=== PATIENT | male | born 1965 | race Caucasian/White ===

== ENCOUNTER 2016-12-07 10:28 | Emergency (ER) | payer OTHER ==
--- NOTE | 2016-12-07 11:46 | ED CLINICAL REPORT ---
Clinical Report - Physicians/Mid Levels [facility] [address] [place] [address] 12/07/2016 10:32 Patient: GOLDY FORRESTER Time Seen: 10:37. Arrived- By ambulance. Historian- patient and EMS personnel. HISTORY OF PRESENT ILLNESS Chief Complaint: ALLERGIC REACTION, ITCHING and "HIVES". FACIAL SWELLING. This started last night and is still present. It was gradual in onset and has been waxing/waning. The patient has had itching and swelling involving the lips, tongue and hands but not had trouble swallowing. No difficulty breathing, dizziness or fainting episodes. A cause has been identified. He has recently taken an antibiotic. (tooth extraction 3 days ago, states he has been on ibuprofen and Penicillin for the past 3 days and noticing some itching last night to extremities. Experienced hives and some tongue swelling this morning, denies shortness of breath). Similar symptoms previously: Recent medical care: Not recently seen/assessed. REVIEW OF SYSTEMS No sore throat, cough, sputum production, fever or chills. No headache, weakness, chest pain, abdominal pain or vomiting. No black stools, urinary frequency, pain with urination, diarrhea or bloody stools. PAST HISTORY Hypertension. Type II diabetes mellitus treated with oral med. PCP: Ravin. Has not had a prior allergic reaction. Dental abscess. Dental pain. Surgeries: Dental surgery. Medications: MetFORMIN HCl Oral. Allergies: Amoxicillin. SOCIAL HISTORY Former smoker, end date 1988. No alcohol use or drug use. ADDITIONAL NOTES The nursing notes have been reviewed. PHYSICAL EXAM Vital Signs: 12/07/2016 10:34 BP: 147/113. HR: 98. RR: 17. O2 saturation: 100%. Temp: 97.7 F. Appearance: Alert. Oriented X3. Patient in mild distress. Head: Mild facial angioedema involving the upper and lower lip and tongue. No angioedema of periorbital area, cheeks or the chin. ENT: Left upper molar(s): (post operative changes; mild tenderness; no fluctuance). Voice normal. Voice not hoarse or muffled. No drooling or pharyngeal erythema. Neck: Neck supple. CVS: Normal heart rate and rhythm. Heart sounds normal. Respiratory: No respiratory distress. Breath sounds normal. No stridor, decreased air movement, prolonged expiration, accessory muscle use or wheezes. No rales or rhonchi. Abdomen: Nontender. No organomegaly. Skin: No cyanosis. Skin warm and dry. No pallor. No diaphoresis. Extremities: Edema of the hands is present (mild). Extremities nontender. No calf tenderness. Skin: Moderate urticaria involving the chest and abdomen, right upper extremity, right lower extremity, left upper extremity and left lower extremity. Neuro: Oriented X 3. No motor deficit. LABS, X-RAYS, AND EKG Pulse Oximetry: (FIO2 - room air). Interpretation: normal. PROGRESS AND PROCEDURES Course of Care: Benadryl 50 mg PO given. Prednisone 60 mg PO given. Famotidine 40 mg PO given. Patient is stable. Physical exam findings are improved. Symptoms much better. Patient/family counseled. Disposition: Discharged. Condition: stable and improved. CLINICAL IMPRESSION Allergic reaction with hives and angioedema secondary to PO penicillins. Periapical dental abscess (resolving). No sinus tract. Dental caries. Clinical picture does not suggest anaphylaxis. INSTRUCTIONS Drink plenty of fluids. No alcohol until released. (Please stop the amoxicillin and motrin.). Warnings: Further evaluation is necessary. It is very important to follow up with a physician. SEDATIVE MEDICATION: You were given sedative medication during your visit. Do not drive or operate dangerous machinery. GENERAL WARNINGS: Return or contact your physician immediately if your condition worsens or changes unexpectedly, if not improving as expected, or if other problems arise. Your Current Medications: CONTINUE TAKING THE FOLLOWING MEDICATIONS: MetFORMIN HCl Oral. Prescription Medications: Hydrocodone/APAP 5mg/325mg: take 1 to 2 orally every 6 hours as needed for pain. Dispense fifteen (15). No refills. EpiPen: inject outside of thigh for allergic reaction. Dispense one (1) unit. No refills. Substitution is permissible. Prednisone 20 mg: take 3 orally every day for 4 days. Dispense sufficient quantity. No refills. Clindamycin 300 mg: take 1 capsule orally every 6 hours for 7 days. No refills. Zantac 150 mg: take 1 orally every 12 hours for 5 days. Dispense fifteen (15). No refills. Substitution is permissible. OTC Medications: Acetaminophen (available over the counter): take according to label instructions. Benadryl (available over the counter): take 1-2 orally every 8 hours for 5 days, as needed for itching or allergies. Dispense thirty (30). No refill. Substitution is permissible. Follow-up: Screening today revealed the patient's blood pressure to be in the hypertensive range. The patient should follow up with a primary care provider for blood pressure management. Follow-up with: [facility], Family Practice, , [address] [place] [address] Follow up in two days. (Electronically signed by Leoncio Bazzi DO 12/07/2016 23:03)
--- NOTE | 2016-12-07 11:46 | ED CLINICAL REPORT ---
Clinical Report - Physicians/Mid Levels [facility] [address] [place] [address] 12/07/2016 10:32 Patient: GOLDY FORRESTER Time Seen: 10:37. Arrived- By ambulance. Historian- patient and EMS personnel. HISTORY OF PRESENT ILLNESS Chief Complaint: ALLERGIC REACTION, ITCHING and "HIVES". FACIAL SWELLING. This started last night and is still present. It was gradual in onset and has been waxing/waning. The patient has had itching and swelling involving the lips, tongue and hands but not had trouble swallowing. No difficulty breathing, dizziness or fainting episodes. A cause has been identified. He has recently taken an antibiotic. (tooth extraction 3 days ago, states he has been on ibuprofen and Penicillin for the past 3 days and noticing some itching last night to extremities. Experienced hives and some tongue swelling this morning, denies shortness of breath). Similar symptoms previously: Recent medical care: Not recently seen/assessed. REVIEW OF SYSTEMS No sore throat, cough, sputum production, fever or chills. No headache, weakness, chest pain, abdominal pain or vomiting. No black stools, urinary frequency, pain with urination, diarrhea or bloody stools. PAST HISTORY Hypertension. Type II diabetes mellitus treated with oral med. PCP: Ravin. Has not had a prior allergic reaction. Dental abscess. Dental pain. Surgeries: Dental surgery. Medications: MetFORMIN HCl Oral. Allergies: Amoxicillin. SOCIAL HISTORY Former smoker, end date 1988. No alcohol use or drug use. ADDITIONAL NOTES The nursing notes have been reviewed. PHYSICAL EXAM Vital Signs: 12/07/2016 10:34 BP: 147/113. HR: 98. RR: 17. O2 saturation: 100%. Temp: 97.7 F. Appearance: Alert. Oriented X3. Patient in mild distress. Head: Mild facial angioedema involving the upper and lower lip and tongue. No angioedema of periorbital area, cheeks or the chin. ENT: Left upper molar(s): (post operative changes; mild tenderness; no fluctuance). Voice normal. Voice not hoarse or muffled. No drooling or pharyngeal erythema. Neck: Neck supple. CVS: Normal heart rate and rhythm. Heart sounds normal. Respiratory: No respiratory distress. Breath sounds normal. No stridor, decreased air movement, prolonged expiration, accessory muscle use or wheezes. No rales or rhonchi. Abdomen: Nontender. No organomegaly. Skin: No cyanosis. Skin warm and dry. No pallor. No diaphoresis. Extremities: Edema of the hands is present (mild). Extremities nontender. No calf tenderness. Skin: Moderate urticaria involving the chest and abdomen, right upper extremity, right lower extremity, left upper extremity and left lower extremity. Neuro: Oriented X 3. No motor deficit. LABS, X-RAYS, AND EKG Pulse Oximetry: (FIO2 - room air). Interpretation: normal. PROGRESS AND PROCEDURES Course of Care: Benadryl 50 mg PO given. Prednisone 60 mg PO given. Famotidine 40 mg PO given. Patient is stable. Physical exam findings are improved. Symptoms much better. Patient/family counseled. Disposition: Discharged. Condition: stable and improved. CLINICAL IMPRESSION Allergic reaction with hives and angioedema secondary to PO penicillins. Periapical dental abscess (resolving). No sinus tract. Dental caries. Clinical picture does not suggest anaphylaxis. INSTRUCTIONS Drink plenty of fluids. No alcohol until released. (Please stop the amoxicillin and motrin.). Warnings: Further evaluation is necessary. It is very important to follow up with a physician. SEDATIVE MEDICATION: You were given sedative medication during your visit. Do not drive or operate dangerous machinery. GENERAL WARNINGS: Return or contact your physician immediately if your condition worsens or changes unexpectedly, if not improving as expected, or if other problems arise. Your Current Medications: CONTINUE TAKING THE FOLLOWING MEDICATIONS: MetFORMIN HCl Oral. Prescription Medications: Hydrocodone/APAP 5mg/325mg: take 1 to 2 orally every 6 hours as needed for pain. Dispense fifteen (15). No refills. EpiPen: inject outside of thigh for allergic reaction. Dispense one (1) unit. No refills. Substitution is permissible. Prednisone 20 mg: take 3 orally every day for 4 days. Dispense sufficient quantity. No refills. Clindamycin 300 mg: take 1 capsule orally every 6 hours for 7 days. No refills. Zantac 150 mg: take 1 orally every 12 hours for 5 days. Dispense fifteen (15). No refills. Substitution is permissible. OTC Medications: Acetaminophen (available over the counter): take according to label instructions. Benadryl (available over the counter): take 1-2 orally every 8 hours for 5 days, as needed for itching or allergies. Dispense thirty (30). No refill. Substitution is permissible. Follow-up: Screening today revealed the patient's blood pressure to be in the hypertensive range. The patient should follow up with a primary care provider for blood pressure management. Follow-up with: [facility], Family Practice, , [address] [place] [address] Follow up in two days. (Electronically signed by Leoncio Bazzi DO 12/07/2016 23:03)
--- NOTE | 2016-12-07 11:47 | ED NURSING NOTES ---
Clinical Report - Nurses [facility] [address] [place] [address] 12/07/2016 10:32 Patient: GOLDY FORRESTER TRIAGE Triage time 1025. Acuity: LEVEL 3. Chief Complaint: ALLERGIC REACTION, ITCHING and HIVES. 10:39 12/07/16. Alert. No acute distress. GREGORIA COMA SCORE: Gregoria Coma Scale: 15- eyes open spontaneously (4); best verbal response- oriented x 4 (5); best motor response- obeys commands (6). --10:40 Armond Waldron R.N. 10:34 12/07/16. BP: 147/113. HR: 98. RR: 17. O2 saturation: 100% on room air. Temp: 97.7 F (oral). Pain level now 0/10. --10:40 Armond Waldron R.N. 10:46 12/07/16. --10:46 Armond Waldron R.N. Weight: 72.5 kg stated. Height/Length: 66 inches Per Patient. BMI: 25.8. --10:34 Armond Waldron R.N. Medications MetFORMIN HCl Oral. --10:37 Armond Waldron R.N. The following entry was struck by Armond Waldron R.N., 10:45 (12/07/16) Reason - other(Pt now states he hasn't taken med in several months). <<STRICKEN ENTRY-- Lisinopril Oral. --10:37 Armond Waldron R.N. --END STRIKE>>. Allergies Amoxicillin. --11:02 Armond Waldron R.N. The following entry was struck by Amrond Waldron R.N., 11:02 (12/07/16) Reason - other. <<STRICKEN ENTRY-- Penicillin. --10:38 Armond Waldron R.N. --END STRIKE>>. Medication/allergy information source: the patient. --10:40 Armond Waldron R.N. History Arrived by EMS. Primary physician (derrick). ( tooth extraction 3 days ago, states he has been on ibuprofen and Penicillin for the past 3 days and noticing some itching last night to extremities. Experienced hives and some tongue swelling this morning, denies shortness of breath.). This started last night. Treatment STEELSCOPE OPERATOR: None. BP: 140/96. HR: 100. RR: 18. O2 saturation: 98 % room air. SOCIAL HX: Former smoker, end date 1988. No alcohol use or drug use. FALL RISK ASSESSMENT: Fall risk assessment completed. No fall risk identified. NUTRITIONAL RISK ASSESSMENT: The nutritional risk assessment revealed no deficiencies. FUNCTIONAL ASSESSMENT: Functional assessment: no impairments noted. LEARNING NEEDS ASSESSMENT: The learning needs assessment revealed no barriers. SKIN INTEGRITY ASSESSMENT: Skin integrity risk assessment completed. No skin integrity risk identified. --10:40 Armond Waldron R.N. ( Pt pulled out amoxicilin pill bottle and realized he had stated incorrectly he was taking penicillin.). --10:46 Armond Waldron R.N. PROBLEMS: Diabetes Mellitus. Hypertension. --10:38 Armond Waldron R.N. ADDITIONAL SURGERIES: no known surgeries. Interventions ID band on patient. To treatment room. --10:40 Armond Waldron R.N. PHYSICAL ASSESSMENT 10:45 12/07/16. To room via stretcher. GENERAL / NEURO / PSYCH: Alert. The patient does not appear to be in acute distress. Oriented X 4. HEENT: Mucous membranes are pink. RESPIRATORY: No respiratory distress. Respirations not labored. Breath sounds within normal limits. ( lungs CTA). CVS: Capillary refill less than 2 seconds. Pulses within normal limits. SKIN: Skin is intact, warm and dry. Urticaria on the chest, abdomen, back, waist area, right arm and left arm- associated with itching. --10:45 Armond Waldron R.N. NURSING PROGRESS NOTES The plan of care for this patient has been created. Monitoring of patient in place. Patient gowned. Call light placed in reach. Side rails up x 2. Bed placed in lowest position. Brakes of bed on. Patient ready for evaluation- chart flagged. --10:45 Armond Waldron R.N. 10:35 12/07/2016 Site #1 started via IV in the left antecubital space with an 22g angiocath; one attempt. Blood drawn: rainbow set. Labeled in the presence of the patient and sent to the lab. Saline lock flushed with 10 mL saline. --10:50 Alysia Ennis R.N. 11:01 12/07/2016 Prednisone PO Tablets 60 mg given. Allergies verified and confirmed 5 rights. --11:01 Armond Waldron R.N. 11:01 12/07/2016 Benadryl (DiphenhydrAMINE HCl) PO Capsules 50 mg given. Allergies verified, confirmed 5 rights and sedative warning given to the patient and patient's contract negotiation manager. --11:01 Armond Waldron R.N. 11:01 12/07/2016 Famotidine PO Tablets 40 mg given. Allergies verified and confirmed 5 rights. --11:01 Armond Waldron R.N. 11:29 12/07/16. HR: 95. O2 saturation: 95% on room air. --11:30 Armond Waldron R.N. DISPOSITION / DISCHARGE Condition at departure: stable. No learning barriers present. The patient was discharged by the physician. He was discharged home and accompanied by contract negotiation manager. He left the Emergency Department ambulatory and via private vehicle. Veterinary Poultry Inspector driving. FALL RISK ASSESSMENT: Fall risk assessment completed. No fall risk identified. --12:00 Tanja Weaver R.N. 11:59 12/07/16. BP: 121/78. HR: 74. RR: 18. O2 saturation: 97%. Pain level now 5/10. --12:00 Tanja Weaver R.N. 12:00 12/07/2016 Site #1 removed upon discharge. Bandage applied. --12:13 Tanja Weaver R.N. Departure time: 12:13 Dec 07 2016. Reviewed medication(s). --12:13 Tanja Weaver R.N. Locked/Released at 12/07/2016 12:14 by Tanja Weaver R.N.
--- NOTE | 2016-12-07 11:47 | ED NURSING NOTES ---
Clinical Report - Nurses [facility] [address] [place] [address] 12/07/2016 10:32 Patient: GOLDY FORRESTER TRIAGE Triage time 1025. Acuity: LEVEL 3. Chief Complaint: ALLERGIC REACTION, ITCHING and HIVES. 10:39 12/07/16. Alert. No acute distress. GREGORIA COMA SCORE: Gregoria Coma Scale: 15- eyes open spontaneously (4); best verbal response- oriented x 4 (5); best motor response- obeys commands (6). --10:40 Armond Waldron R.N. 10:34 12/07/16. BP: 147/113. HR: 98. RR: 17. O2 saturation: 100% on room air. Temp: 97.7 F (oral). Pain level now 0/10. --10:40 Armond Waldron R.N. 10:46 12/07/16. --10:46 Armond Waldron R.N. Weight: 72.5 kg stated. Height/Length: 66 inches Per Patient. BMI: 25.8. --10:34 Armond Waldron R.N. Medications MetFORMIN HCl Oral. --10:37 Armond Waldron R.N. The following entry was struck by Armond Waldron R.N., 10:45 (12/07/16) Reason - other(Pt now states he hasn't taken med in several months). <<STRICKEN ENTRY-- Lisinopril Oral. --10:37 Armond Waldron R.N. --END STRIKE>>. Allergies Amoxicillin. --11:02 Armond Waldron R.N. The following entry was struck by Armond Waldron R.N., 11:02 (12/07/16) Reason - other. <<STRICKEN ENTRY-- Penicillin. --10:38 Armond Waldron R.N. --END STRIKE>>. Medication/allergy information source: the patient. --10:40 Armond Waldron R.N. History Arrived by EMS. Primary physician (derrick). ( tooth extraction 3 days ago, states he has been on ibuprofen and Penicillin for the past 3 days and noticing some itching last night to extremities. Experienced hives and some tongue swelling this morning, denies shortness of breath.). This started last night. Treatment ANALYTICAL LAB ANALYST: None. BP: 140/96. HR: 100. RR: 18. O2 saturation: 98 % room air. SOCIAL HX: Former smoker, end date 1988. No alcohol use or drug use. FALL RISK ASSESSMENT: Fall risk assessment completed. No fall risk identified. NUTRITIONAL RISK ASSESSMENT: The nutritional risk assessment revealed no deficiencies. FUNCTIONAL ASSESSMENT: Functional assessment: no impairments noted. LEARNING NEEDS ASSESSMENT: The learning needs assessment revealed no barriers. SKIN INTEGRITY ASSESSMENT: Skin integrity risk assessment completed. No skin integrity risk identified. --10:40 Armond Waldron R.N. ( Pt pulled out amoxicilin pill bottle and realized he had stated incorrectly he was taking penicillin.). --10:46 Armond Waldron R.N. PROBLEMS: Diabetes Mellitus. Hypertension. --10:38 Armond Waldron R.N. ADDITIONAL SURGERIES: no known surgeries. Interventions ID band on patient. To treatment room. --10:40 Armond Waldron R.N. PHYSICAL ASSESSMENT 10:45 12/07/16. To room via stretcher. GENERAL / NEURO / PSYCH: Alert. The patient does not appear to be in acute distress. Oriented X 4. HEENT: Mucous membranes are pink. RESPIRATORY: No respiratory distress. Respirations not labored. Breath sounds within normal limits. ( lungs CTA). CVS: Capillary refill less than 2 seconds. Pulses within normal limits. SKIN: Skin is intact, warm and dry. Urticaria on the chest, abdomen, back, waist area, right arm and left arm- associated with itching. --10:45 Armond Waldron R.N. NURSING PROGRESS NOTES The plan of care for this patient has been created. Monitoring of patient in place. Patient gowned. Call light placed in reach. Side rails up x 2. Bed placed in lowest position. Brakes of bed on. Patient ready for evaluation- chart flagged. --10:45 Armond Waldron R.N. 10:35 12/07/2016 Site #1 started via IV in the left antecubital space with an 22g angiocath; one attempt. Blood drawn: rainbow set. Labeled in the presence of the patient and sent to the lab. Saline lock flushed with 10 mL saline. --10:50 Alysia Ennis R.N. 11:01 12/07/2016 Prednisone PO Tablets 60 mg given. Allergies verified and confirmed 5 rights. --11:01 Armond Waldron R.N. 11:01 12/07/2016 Benadryl (DiphenhydrAMINE HCl) PO Capsules 50 mg given. Allergies verified, confirmed 5 rights and sedative warning given to the patient and patient's social work instructor. --11:01 Armond Waldron R.N. 11:01 12/07/2016 Famotidine PO Tablets 40 mg given. Allergies verified and confirmed 5 rights. --11:01 Armond Waldron R.N. 11:29 12/07/16. HR: 95. O2 saturation: 95% on room air. --11:30 Armond Waldron R.N. DISPOSITION / DISCHARGE Condition at departure: stable. No learning barriers present. The patient was discharged by the physician. He was discharged home and accompanied by social work instructor. He left the Emergency Department ambulatory and via private vehicle. Labour Market Economist driving. FALL RISK ASSESSMENT: Fall risk assessment completed. No fall risk identified. --12:00 Tanja Weaver R.N. 11:59 12/07/16. BP: 121/78. HR: 74. RR: 18. O2 saturation: 97%. Pain level now 5/10. --12:00 Tanja Weaver R.N. 12:00 12/07/2016 Site #1 removed upon discharge. Bandage applied. --12:13 Tanja Weaver R.N. Departure time: 12:13 Dec 07 2016. Reviewed medication(s). --12:13 Tanja Weaver R.N. Locked/Released at 12/07/2016 12:14 by Tanja Weaver R.N.
--- NOTE | 2016-12-07 11:47 | ED ORDER SUMMARY ---
..... Patient: GOLDY FORRESTER OrderSheet [facility] VisitID: [id number] [address] [place] [address] 51y, M Registration Date/Time: 12/07/2016 ORDER SHEET Weight: 72.5 kg (stated) Allergies: Amoxicillin GENERAL ORDERS: MEDICATION ORDERS: Prednisone PO 60 mg (NOW) (10:52 12/07/2016 [facility]) (11:01 KWfrantzams R.N.) Benadryl PO 50 mg (NOW) (10:52 12/07/2016 [facility]) (11:01 Abbeyams R.N.) Famotidine PO 40 mg (NOW) (10:52 12/07/2016 [facility]) (11:01 KWilliams R.N.) IV FLUIDS: ORDER SHEET NOTES: [Electronically signed by Tanja Weaver R.N. (12:14 12/07/2016)] [Electronically signed by Leoncio Bazzi DO (23:03 12/07/2016)] [Electronically locked/signed by Tanja Weaver R.N. (12:14 12/07/2016)]
--- NOTE | 2016-12-07 11:47 | ED ORDER SUMMARY ---
..... Patient: GOLDY FORRESTER OrderSheet [facility] VisitID: [id number] [address] [place] [address] 51y, M Registration Date/Time: 12/07/2016 ORDER SHEET Weight: 72.5 kg (stated) Allergies: Amoxicillin GENERAL ORDERS: MEDICATION ORDERS: Prednisone PO 60 mg (NOW) (10:52 12/07/2016 [facility]) (11:01 KWfrantzams R.N.) Benadryl PO 50 mg (NOW) (10:52 12/07/2016 [facility]) (11:01 Abbeyams R.N.) Famotidine PO 40 mg (NOW) (10:52 12/07/2016 [facility]) (11:01 KWilliams R.N.) IV FLUIDS: ORDER SHEET NOTES: [Electronically signed by Tanja Weaver R.N. (12:14 12/07/2016)] [Electronically signed by Leoncio Bzazi DO (23:03 12/07/2016)] [Electronically locked/signed by Tanja Weaver R.N. (12:14 12/07/2016)]
--- NOTE | 2016-12-07 23:03 | ED DISCHARGE INSTRUCTIONS ---
Patient: GOLDY FORRESTER General Instructions [facility] VisitID: [id number] [place] [address] 51y, M Registration Date/Time: 12/07/2016 Allergic reaction with hives and angioedema secondary to PO penicillins. Periapical dental abscess (resolving). No sinus tract. Dental caries. INSTRUCTIONS Drink plenty of fluids. No alcohol until released. (Please stop the amoxicillin and motrin.). Warnings: Further evaluation is necessary. It is very important to follow up with a physician. SEDATIVE MEDICATION: You were given sedative medication during your visit. Do not drive or operate dangerous machinery. GENERAL WARNINGS: Return or contact your physician immediately if your condition worsens or changes unexpectedly, if not improving as expected, or if other problems arise. Your Current Medications: CONTINUE TAKING THE FOLLOWING MEDICATIONS: MetFORMIN HCl Oral. Prescription Medications: Hydrocodone/APAP 5mg/325mg: take 1 to 2 orally every 6 hours as needed for pain. Dispense fifteen (15). No refills. EpiPen: inject outside of thigh for allergic reaction. Dispense one (1) unit. No refills. Substitution is permissible. Prednisone 20 mg: take 3 orally every day for 4 days. Dispense sufficient quantity. No refills. Clindamycin 300 mg: take 1 capsule orally every 6 hours for 7 days. No refills. Zantac 150 mg: take 1 orally every 12 hours for 5 days. Dispense fifteen (15). No refills. Substitution is permissible. OTC Medications: Acetaminophen (available over the counter): take according to label instructions. Benadryl (available over the counter): take 1-2 orally every 8 hours for 5 days, as needed for itching or allergies. Dispense thirty (30). No refill. Substitution is permissible. Follow-up: Screening today revealed the patient's blood pressure to be in the hypertensive range. The patient should follow up with a primary care provider for blood pressure management. Follow-up with: [facility], [facility], , [address] [place] [address], [place] [id number] Follow up in two days. ADDITIONAL INFORMATION Drug Reaction: Allergic You are having an allergic reaction to a drug you have taken. This causes an itchy rash and sometimes swelling of various parts of the body. It may also cause trouble swallowing or breathing. The rash may take a few hours or up to two weeks to go away. In the future, remember to tell your doctor about your allergy to this drug so that drugs of this type won't be used again. Home Care: 1) Throw the drug away and do not take it again. The next reaction may be much worse. 2) Avoid tight clothing and anything that heats up your skin (hot showers/baths, direct sunlight) since heat will make itching worse. 3) An ice pack (ice cubes in a plastic bag, wrapped in a towel) will relieve local areas of intense itching and redness. Lanacaine cream or Solarcaine spray (or other product containing "benzocaine") will reduce the itching. 4) Avoid scratching which may worsen the reaction, damage your skin and lead to an infection. 5) Oral Benadryl (diphenhydramine) is an antihistamine available at drug and grocery stores. Unless a prescription antihistamine was given, Benadryl may be used to reduce itching if large areas of the skin are involved. Use lower doses during the daytime and higher doses at bedtime since the drug may make you sleepy. [NOTE: Do not use Benadryl if you have glaucoma or if you are a man with trouble urinating due to an enlarged prostate.] Claritin (loratadine) is an antihistamine that causes less drowsiness and is a good alternative for daytime use. Follow Up with your doctor or this facility in the next two days if your symptoms do not continue to improve. Get Prompt Medical Attention if any of the following occur: -- Wheezing, shortness of breath or difficulty swallowing -- Increased swelling in the face, eyelids, mouth, lips, tongue or throat -- Dizziness, weakness or fainting Dental Abscess A dental abscess is an infection of the tooth socket. It often starts with a crack or cavity in the tooth. A pocket of pus forms between the tooth and the bone. The infection causes pain and swelling of the gum, cheek or jaw. The pain is often made worse by drinking hot or cold fluids, or biting on hard foods. Pain may be felt in the facial sinus or in the ear. A severe infection can interfere with swallowing and breathing. In the emergency department or clinic, you will be started on an antibiotic. However, final treatment requires drainage of the pus. This can be done by removing the tooth or performing a root canal. A root canal is done by an oral surgeon and involves drilling an opening in the tooth to drain the pus. After the infection has healed, a crown is placed over the tooth. Home care The following guidelines will help you care for your abscess at home: Avoid hot and cold foods and liquids since your tooth may be sensitive to temperature changes. If your tooth is chipped or cracked, or if there is a large open cavity, applyoil of cloves(available shzh-ymx-tskzrii in drug stores) directly to the tooth to reduce pain. Some pharmacies carry an rnju-vlv-aholakx "toothache kit". This contains oil of cloves and a paste, which can be applied over the exposed tooth to decrease sensitivity. Apply an ice pack (ice cubes in a plastic bag, wrapped in a towel) over the injured area for 20 minutes every 12 hours the first day for pain relief. Continue this 34 times a day until the pain and swelling goes away. You may use acetaminophen or ibuprofen to control pain, unless another medicine was prescribed. If you have chronic liver or kidney disease or ever had a stomach ulcer or GI bleeding, talk with your doctor before using these medicines. An antibiotic will be prescribed. Take it as directed until completed, even if you are feeling better sooner. Follow-up care Follow up as directed with a dentist or oral surgeon. Even though your pain may improve with the treatment given today, only a dentist or oral surgeon can provide full treatment for this problem. When to seek medical care Get prompt medical attention or contact your doctor if any of the following occur: Your face or eyelid becomes swollen or red Pain worsens or spreads to the neck Fever over 100.4F (38.0C) Unusual drowsiness; headache or stiff neck; weakness, or fainting Pus drains from the gum or tooth Difficulty talking, swallowing or breathing Unable to open your mouth wide Dental Pain A crack or cavity in the tooth, which exposes the sensitive inner area of the tooth can cause tooth pain. An infection in the gum or the root of the tooth can cause pain and swelling. The pain is often made worse by drinking hot or cold fluids, or biting on hard foods. Pain may spread from the tooth to the ear or jaw on the same side. Home Care: Avoid hot and cold foods and liquids since your tooth may be sensitive to temperature changes. If your tooth is chipped or cracked, or if there is a large open cavity, apply OIL OF CLOVES (available giuu-ddw-vyftari in drug stores) directly to the tooth to reduce pain. Some pharmacies carry an ekkl-prl-uecncdv "toothache kit." This contains a paste, which can be applied over the exposed tooth to decrease sensitivity. A cold pack on your jaw over the sore area may help reduce pain. You may use acetaminophen (Tylenol) or ibuprofen (Motrin, Advil) to control pain, unless another medicine was prescribed. [ NOTE: If you have chronic liver or kidney disease or ever had a stomach ulcer or GI bleeding, talk with your doctor before using these medicines.] If you have signs of an infection, an antibiotic will be given. Take it as directed. Follow-Up as directed with a dentist. Your pain may go away with the treatment given. However, only a dentist can fully evaluate and treat the cause and prevent the pain from coming back again. TOOTHACHE IS A SIGN OF DISEASE IN YOUR TOOTH AND SHOULD BE EXAMINED AND TREATED BY A DENTIST. Get Prompt Medical Attention if any of the following occur: Your face becomes swollen or red Pain worsens or spreads to the neck Fever over 100.4 F (38.0 C) Unusual drowsiness; headache or stiff neck; weakness or fainting Pus drains from the tooth Difficulty swallowing or breathing Prednisone Oral tablet What is this medicine? PREDNISONE (PRED ni sone) is a corticosteroid. It is commonly used to treat inflammation of the skin, joints, lungs, and other organs. Common conditions treated include asthma, allergies, and arthritis. It is also used for other conditions, such as blood disorders and diseases of the adrenal glands. How should I use this medicine? Take this medicine by mouth with a glass of water. Follow the directions on the prescription label. Take this medicine with food. If you are taking this medicine once a day, take it in the morning. Do not take more medicine than you are told to take. Do not suddenly stop taking your medicine because you may develop a severe reaction. Your doctor will tell you how much medicine to take. If your doctor wants you to stop the medicine, the dose may be slowly lowered over time to avoid any side effects. Talk to your rate examiner regarding the use of this medicine in children. Special care may be needed. What side effects may I notice from receiving this medicine? Side effects that you should report to your doctor or health life care planner as soon as possible: allergic reactions like skin rash, itching or hives, swelling of the face, lips, or tongue changes in emotions or moods changes in vision depressed mood eye pain fever or chills, cough, sore throat, pain or difficulty passing urine increased thirst swelling of ankles, feet Side effects that usually do not require medical attention (report to your doctor or health life care planner if they continue or are bothersome): confusion, excitement, restlessness headache nausea, vomiting skin problems, acne, thin and shiny skin trouble sleeping weight gain What may interact with this medicine? Do not take this medicine with any of the following medications: metyrapone mifepristone This medicine may also interact with the following medications: aminoglutethimide amphotericin B aspirin and aspirin-like medicines barbiturates certain medicines for diabetes, like glipizide or glyburide cholestyramine cholinesterase inhibitors cyclosporine digoxin diuretics ephedrine female hormones, like estrogens and control pills isoniazid ketoconazole NSAIDS, medicines for pain and inflammation, like ibuprofen or naproxen phenytoin rifampin toxoids vaccines warfarin What if I miss a dose? If you miss a dose, take it as soon as you can. If it is almost time for your next dose, talk to your doctor or health life care planner. You may need to miss a dose or take an extra dose. Do not take double or extra doses without advice. Where should I keep my medicine? Keep out of the reach of children. Store at room temperature between 15 and 30 degrees C (59 and 86 degrees F). Protect from light. Keep container tightly closed. Throw away any unused medicine after the expiration date. What should I tell my health care provider before I take this medicine? They need to know if you have any of these conditions: Stephenson's syndrome diabetes glaucoma heart disease high blood pressure infection (especially a virus infection such as chickenpox, cold sores, or herpes) kidney disease liver disease mental illness myasthenia gravis osteoporosis seizures stomach or intestine problems thyroid disease an unusual or allergic reaction to lactose, prednisone, other medicines, foods, dyes, or preservatives or trying to get breast-feeding What should I watch for while using this medicine? Visit your doctor or health life care planner for regular checks on your progress. If you are taking this medicine over a prolonged period, carry an identification card with your name and address, the type and dose of your medicine, and your doctor's name and address. This medicine may increase your risk of getting an infection. Tell your doctor or health life care planner if you are around anyone with measles or chickenpox, or if you develop sores or blisters that do not heal properly. If you are going to have surgery, tell your doctor or health life care planner that you have taken this medicine within the last twelve months. Ask your doctor or health life care planner about your diet. You may need to lower the amount of salt you eat. This medicine may affect blood sugar levels. If you have diabetes, check with your doctor or health life care planner before you change your diet or the dose of your diabetic medicine. Clindamycin Hydrochloride Oral capsule What is this medicine? CLINDAMYCIN (KLIN da MYE sin) is a lincosamide antibiotic. It is used to treat certain kinds of bacterial infections. It will not work for colds, flu, or other viral infections. How should I use this medicine? Take this medicine by mouth with a full glass of water. Follow the directions on the prescription label. You can take this medicine with food or on an empty stomach. If the medicine upsets your stomach, take it with food. Take your medicine at regular intervals. Do not take your medicine more often than directed. Take all of your medicine as directed even if you think your are better. Do not skip doses or stop your medicine early. Talk to your rate examiner regarding the use of this medicine in children. Special care may be needed. What side effects may I notice from receiving this medicine? Side effects that you should report to your doctor or health life care planner as soon as possible: allergic reactions like skin rash, itching or hives, swelling of the face, lips, or tongue dark urine pain on swallowing redness, blistering, peeling or loosening of the skin, including inside the mouth unusual bleeding or bruising unusually weak or tired yellowing of eyes or skin Side effects that usually do not require medical attention (report to your doctor or health life care planner if they continue or are bothersome): diarrhea itching in the rectal or genital area joint pain nausea, vomiting stomach pain What may interact with this medicine? chloramphenicol erythromycin kaolin products What if I miss a dose? If you miss a dose, take it as soon as you can. If it is almost time for your next dose, take only that dose. Do not take double or extra doses. Where should I keep my medicine? Keep out of the reach of children. Store at room temperature between 20 and 25 degrees C (68 and 77 degrees F). Throw away any unused medicine after the expiration date. What should I tell my health care provider before I take this medicine? They need to know if you have any of these conditions: kidney disease liver disease stomach problems like colitis an unusual or allergic reaction to clindamycin, lincomycin, or other medicines, foods, dyes like tartrazine or preservatives or trying to get breast-feeding What should I watch for while using this medicine? Tell your doctor or healthcare professional if your symptoms do not start to get better or if they get worse. Do not treat diarrhea with over the counter products. Contact your doctor if you have diarrhea that lasts more than 2 days or if it is severe and watery. Ranitidine Hydrochloride Oral tablet What is this medicine? RANITIDINE (ra HARRIS sandoval) is a type of antihistamine that blocks the release of stomach acid. It is used to treat stomach or intestinal ulcers. It can relieve ulcer pain and discomfort, and the heartburn from acid reflux. How should I use this medicine? Take this medicine by mouth with a glass of water. Follow the directions on the prescription label. If you only take this medicine once a day, take it at bedtime. Take your medicine at regular intervals. Do not take your medicine more often than directed. Do not stop taking except on your doctor's advice. Talk to your rate examiner regarding the use of this medicine in children. Special care may be needed. What side effects may I notice from receiving this medicine? Side effects that you should report to your doctor or health life care planner as soon as possible: agitation, nervousness, depression, hallucinations allergic reactions like skin rash, itching or hives, swelling of the face, lips, or tongue breast enlargement in both males and females breathing problems redness, blistering, peeling or loosening of the skin, including inside the mouth unusual bleeding or bruising unusually weak or tired vomiting yellowing of the skin or eyes Side effects that usually do not require medical attention (report to your doctor or health life care planner if they continue or are bothersome): constipation or diarrhea dizziness headache nausea What may interact with this medicine? atazanavir delavirdine gefitinib glipizide ketoconazole midazolam procainamide propantheline triazolam warfarin What if I miss a dose? If you miss a dose, take it as soon as you can. If it is almost time for your next dose, take only that dose. Do not take double or extra doses. Where should I keep my medicine? Keep out of the reach of children. Store at room temperature between 15 and 30 degrees C (59 and 86 degrees F). Protect from light and moisture. Keep container tightly closed. Throw away any unused medicine after the expiration date. What should I tell my health care provider before I take this medicine? They need to know if you have any of these conditions: kidney disease liver disease porphyria an unusual or allergic reaction to ranitidine, other medicines, foods, dyes, or preservatives or trying to get breast-feeding What should I watch for while using this medicine? Tell your doctor or health life care planner if your condition does not start to get better or gets worse. You may need to take this medicine for several days as prescribed before your symptoms get better. Finish the full course of tablets prescribed, even if you feel better. Do not smoke cigarettes or drink alcohol. These increase irritation in your stomach and can lengthen the time it will take for ulcers to heal. Cigarettes and alcohol can also make acid reflux or heartburn worse. If you get black, tarry stools or vomit up what looks like coffee grounds, call your doctor or health life care planner at once. You may have a bleeding ulcer. Acetaminophen Oral tablet What is this medicine? ACETAMINOPHEN (a set a MIHIR rudolph fen) is a pain reliever. It is used to treat mild pain and fever. How should I use this medicine? Take this medicine by mouth with a glass of water. Follow the directions on the package or prescription label. Take your medicine at regular intervals. Do not take your medicine more often than directed. Talk to your rate examiner regarding the use of this medicine in children. While this drug may be prescribed for children as young as 6 years of age for selected conditions, precautions do apply. What side effects may I notice from receiving this medicine? Side effects that you should report to your doctor or health life care planner as soon as possible: allergic reactions like skin rash, itching or hives, swelling of the face, lips, or tongue breathing problems fever or sore throat redness, blistering, peeling or loosening of the skin, including inside the mouth trouble passing urine or change in the amount of urine unusual bleeding or bruising unusually weak or tired yellowing of the eyes or skin Side effects that usually do not require medical attention (report to your doctor or health life care planner if they continue or are bothersome): headache nausea, stomach upset What may interact with this medicine? alcohol imatinib isoniazid other medicines with acetaminophen What if I miss a dose? If you miss a dose, take it as soon as you can. If it is almost time for your next dose, take only that dose. Do not take double or extra doses. Where should I keep my medicine? Keep out of reach of children. Store at room temperature between 20 and 25 degrees C (68 and 77 degrees F). Protect from moisture and heat. Throw away any unused medicine after the expiration date. What should I tell my health care provider before I take this medicine? They need to know if you have any of these conditions: if you frequently drink alcohol containing drinks liver disease an unusual or allergic reaction to acetaminophen, other medicines, foods, dyes or preservatives or trying to get breast-feeding What should I watch for while using this medicine? Tell your doctor or health life care planner if the pain lasts more than 10 days (5 days for children), if it gets worse, or if there is a new or different kind of pain. Also, check with your doctor if a fever lasts for more than 3 days. Do not take other medicines that contain acetaminophen with this medicine. Always read labels carefully. If you have questions, ask your doctor or pharmacist. If you take too much acetaminophen get medical help right away. Too much acetaminophen can be very dangerous and cause liver damage. Even if you do not have symptoms, it is important to get help right away. Diphenhydramine Tannate Chewable tablet What is this medicine? DIPHENHYDRAMINE (dye karen mcdonough) is an antihistamine. It is used to treat the symptoms of an allergic reaction. How should I use this medicine? Take this medicine by mouth. Chew it completely before swallowing. Follow the directions on the prescription label. Take your doses at regular intervals. Do not take your medicine more often than directed. Talk to your rate examiner regarding the use of this medicine in children. While this drug may be prescribed for children as young as 6 years old for selected conditions, precautions do apply. Patients over 65 years old may have a stronger reaction and need a smaller dose. What side effects may I notice from receiving this medicine? Side effects that you should report to your doctor or health life care planner as soon as possible: allergic reactions like skin rash, itching or hives, swelling of the face, lips, or tongue changes in vision confused, agitated, nervous irregular or fast heartbeat tremor trouble passing urine unusual bleeding or bruising unusually weak or tired Side effects that usually do not require medical attention (report to your doctor or health life care planner if they continue or are bothersome): constipation, diarrhea drowsy headache loss of appetite stomach upset, vomiting thick mucous What may interact with this medicine? Do not take this medicine with any of the following medications: MAOIs like Carbex, Eldepryl, Marplan, Nardil, and Parnate This medicine may also interact with the following medications: alcohol barbiturates, like phenobarbital medicines for bladder spasm like oxybutynin, tolterodine medicines for blood pressure medicines for depression, anxiety, or psychotic disturbances medicines for movement abnormalities or Parkinson's disease medicines for sleep other medicines for cold, cough or allergy some medicines for the stomach like chlordiazepoxide, dicyclomine What if I miss a dose? If you miss a dose, take it as soon as you can. If it is almost time for your next dose, take only that dose. Do not take double or extra doses. Where should I keep my medicine? Keep out of the reach of children. Store at room temperature between 15 and 30 degrees C (59 and 86 degrees F). Keep container closed tightly. Throw away any unused medicine after the expiration date. What should I tell my health care provider before I take this medicine? They need to know if you have any of these conditions: glaucoma high blood pressure heart disease liver disease lung or breathing disease, like asthma pain or difficulty passing urine phenylketonuria prostate trouble ulcers or other stomach problems an unusual or allergic reaction to diphenhydramine, sulfites, other medicines foods, dyes, or preservatives or trying to get breast-feeding What should I watch for while using this medicine? Visit your doctor or health life care planner for regular check ups. Tell your doctor or healthcare professional if your symptoms do not start to get better or if they get worse. Your mouth may get dry. Chewing sugarless gum or sucking hard candy, and drinking plenty of water may help. Contact your doctor if the problem does not go away or is severe. This medicine may cause dry eyes and blurred vision. If you wear contact lenses you may feel some discomfort. Lubricating drops may help. See your eye doctor if the problem does not go away or is severe. You may get drowsy or dizzy. Do not drive, use machinery, or do anything that needs mental alertness until you know how this medicine affects you. Do not stand or sit up quickly, especially if you are an older patient. This reduces the risk of dizzy or fainting spells. Alcohol may interfere with the effect of this medicine. Avoid alcoholic drinks. You have been given the following additional information: Allergic Reaction, Drug Tooth Abscess Dental Pain Prednisone Oral tablet Clindamycin Hydrochloride Oral capsule Ranitidine Hydrochloride Oral tablet Acetaminophen Oral tablet Diphenhydramine Tannate Chewable tablet (Electronically signed by Leoncio Bazzi DO 12/07/2016 23:03)
--- NOTE | 2016-12-07 23:03 | ED DISCHARGE INSTRUCTIONS ---
Patient: GOLDY FORRESTER General Instructions [facility] VisitID: [id number] [place] [address] 51y, M Registration Date/Time: 12/07/2016 Allergic reaction with hives and angioedema secondary to PO penicillins. Periapical dental abscess (resolving). No sinus tract. Dental caries. INSTRUCTIONS Drink plenty of fluids. No alcohol until released. (Please stop the amoxicillin and motrin.). Warnings: Further evaluation is necessary. It is very important to follow up with a physician. SEDATIVE MEDICATION: You were given sedative medication during your visit. Do not drive or operate dangerous machinery. GENERAL WARNINGS: Return or contact your physician immediately if your condition worsens or changes unexpectedly, if not improving as expected, or if other problems arise. Your Current Medications: CONTINUE TAKING THE FOLLOWING MEDICATIONS: MetFORMIN HCl Oral. Prescription Medications: Hydrocodone/APAP 5mg/325mg: take 1 to 2 orally every 6 hours as needed for pain. Dispense fifteen (15). No refills. EpiPen: inject outside of thigh for allergic reaction. Dispense one (1) unit. No refills. Substitution is permissible. Prednisone 20 mg: take 3 orally every day for 4 days. Dispense sufficient quantity. No refills. Clindamycin 300 mg: take 1 capsule orally every 6 hours for 7 days. No refills. Zantac 150 mg: take 1 orally every 12 hours for 5 days. Dispense fifteen (15). No refills. Substitution is permissible. OTC Medications: Acetaminophen (available over the counter): take according to label instructions. Benadryl (available over the counter): take 1-2 orally every 8 hours for 5 days, as needed for itching or allergies. Dispense thirty (30). No refill. Substitution is permissible. Follow-up: Screening today revealed the patient's blood pressure to be in the hypertensive range. The patient should follow up with a primary care provider for blood pressure management. Follow-up with: [facility], [facility], , [address] [place] [address], [place] [id number] Follow up in two days. ADDITIONAL INFORMATION Drug Reaction: Allergic You are having an allergic reaction to a drug you have taken. This causes an itchy rash and sometimes swelling of various parts of the body. It may also cause trouble swallowing or breathing. The rash may take a few hours or up to two weeks to go away. In the future, remember to tell your doctor about your allergy to this drug so that drugs of this type won't be used again. Home Care: 1) Throw the drug away and do not take it again. The next reaction may be much worse. 2) Avoid tight clothing and anything that heats up your skin (hot showers/baths, direct sunlight) since heat will make itching worse. 3) An ice pack (ice cubes in a plastic bag, wrapped in a towel) will relieve local areas of intense itching and redness. Lanacaine cream or Solarcaine spray (or other product containing "benzocaine") will reduce the itching. 4) Avoid scratching which may worsen the reaction, damage your skin and lead to an infection. 5) Oral Benadryl (diphenhydramine) is an antihistamine available at drug and grocery stores. Unless a prescription antihistamine was given, Benadryl may be used to reduce itching if large areas of the skin are involved. Use lower doses during the daytime and higher doses at bedtime since the drug may make you sleepy. [NOTE: Do not use Benadryl if you have glaucoma or if you are a man with trouble urinating due to an enlarged prostate.] Claritin (loratadine) is an antihistamine that causes less drowsiness and is a good alternative for daytime use. Follow Up with your doctor or this facility in the next two days if your symptoms do not continue to improve. Get Prompt Medical Attention if any of the following occur: -- Wheezing, shortness of breath or difficulty swallowing -- Increased swelling in the face, eyelids, mouth, lips, tongue or throat -- Dizziness, weakness or fainting Dental Abscess A dental abscess is an infection of the tooth socket. It often starts with a crack or cavity in the tooth. A pocket of pus forms between the tooth and the bone. The infection causes pain and swelling of the gum, cheek or jaw. The pain is often made worse by drinking hot or cold fluids, or biting on hard foods. Pain may be felt in the facial sinus or in the ear. A severe infection can interfere with swallowing and breathing. In the emergency department or clinic, you will be started on an antibiotic. However, final treatment requires drainage of the pus. This can be done by removing the tooth or performing a root canal. A root canal is done by an oral surgeon and involves drilling an opening in the tooth to drain the pus. After the infection has healed, a crown is placed over the tooth. Home care The following guidelines will help you care for your abscess at home: Avoid hot and cold foods and liquids since your tooth may be sensitive to temperature changes. If your tooth is chipped or cracked, or if there is a large open cavity, applyoil of cloves(available fxhk-vev-qyobuin in drug stores) directly to the tooth to reduce pain. Some pharmacies carry an vugx-jni-mvcfdin "toothache kit". This contains oil of cloves and a paste, which can be applied over the exposed tooth to decrease sensitivity. Apply an ice pack (ice cubes in a plastic bag, wrapped in a towel) over the injured area for 20 minutes every 12 hours the first day for pain relief. Continue this 34 times a day until the pain and swelling goes away. You may use acetaminophen or ibuprofen to control pain, unless another medicine was prescribed. If you have chronic liver or kidney disease or ever had a stomach ulcer or GI bleeding, talk with your doctor before using these medicines. An antibiotic will be prescribed. Take it as directed until completed, even if you are feeling better sooner. Follow-up care Follow up as directed with a dentist or oral surgeon. Even though your pain may improve with the treatment given today, only a dentist or oral surgeon can provide full treatment for this problem. When to seek medical care Get prompt medical attention or contact your doctor if any of the following occur: Your face or eyelid becomes swollen or red Pain worsens or spreads to the neck Fever over 100.4F (38.0C) Unusual drowsiness; headache or stiff neck; weakness, or fainting Pus drains from the gum or tooth Difficulty talking, swallowing or breathing Unable to open your mouth wide Dental Pain A crack or cavity in the tooth, which exposes the sensitive inner area of the tooth can cause tooth pain. An infection in the gum or the root of the tooth can cause pain and swelling. The pain is often made worse by drinking hot or cold fluids, or biting on hard foods. Pain may spread from the tooth to the ear or jaw on the same side. Home Care: Avoid hot and cold foods and liquids since your tooth may be sensitive to temperature changes. If your tooth is chipped or cracked, or if there is a large open cavity, apply OIL OF CLOVES (available yqdz-dpz-wpksfgu in drug stores) directly to the tooth to reduce pain. Some pharmacies carry an rxwm-sax-sjwkaqt "toothache kit." This contains a paste, which can be applied over the exposed tooth to decrease sensitivity. A cold pack on your jaw over the sore area may help reduce pain. You may use acetaminophen (Tylenol) or ibuprofen (Motrin, Advil) to control pain, unless another medicine was prescribed. [ NOTE: If you have chronic liver or kidney disease or ever had a stomach ulcer or GI bleeding, talk with your doctor before using these medicines.] If you have signs of an infection, an antibiotic will be given. Take it as directed. Follow-Up as directed with a dentist. Your pain may go away with the treatment given. However, only a dentist can fully evaluate and treat the cause and prevent the pain from coming back again. TOOTHACHE IS A SIGN OF DISEASE IN YOUR TOOTH AND SHOULD BE EXAMINED AND TREATED BY A DENTIST. Get Prompt Medical Attention if any of the following occur: Your face becomes swollen or red Pain worsens or spreads to the neck Fever over 100.4 F (38.0 C) Unusual drowsiness; headache or stiff neck; weakness or fainting Pus drains from the tooth Difficulty swallowing or breathing Prednisone Oral tablet What is this medicine? PREDNISONE (PRED ni sone) is a corticosteroid. It is commonly used to treat inflammation of the skin, joints, lungs, and other organs. Common conditions treated include asthma, allergies, and arthritis. It is also used for other conditions, such as blood disorders and diseases of the adrenal glands. How should I use this medicine? Take this medicine by mouth with a glass of water. Follow the directions on the prescription label. Take this medicine with food. If you are taking this medicine once a day, take it in the morning. Do not take more medicine than you are told to take. Do not suddenly stop taking your medicine because you may develop a severe reaction. Your doctor will tell you how much medicine to take. If your doctor wants you to stop the medicine, the dose may be slowly lowered over time to avoid any side effects. Talk to your convenience store clerk regarding the use of this medicine in children. Special care may be needed. What side effects may I notice from receiving this medicine? Side effects that you should report to your doctor or health home care physical therapist as soon as possible: allergic reactions like skin rash, itching or hives, swelling of the face, lips, or tongue changes in emotions or moods changes in vision depressed mood eye pain fever or chills, cough, sore throat, pain or difficulty passing urine increased thirst swelling of ankles, feet Side effects that usually do not require medical attention (report to your doctor or health home care physical therapist if they continue or are bothersome): confusion, excitement, restlessness headache nausea, vomiting skin problems, acne, thin and shiny skin trouble sleeping weight gain What may interact with this medicine? Do not take this medicine with any of the following medications: metyrapone mifepristone This medicine may also interact with the following medications: aminoglutethimide amphotericin B aspirin and aspirin-like medicines barbiturates certain medicines for diabetes, like glipizide or glyburide cholestyramine cholinesterase inhibitors cyclosporine digoxin diuretics ephedrine female hormones, like estrogens and control pills isoniazid ketoconazole NSAIDS, medicines for pain and inflammation, like ibuprofen or naproxen phenytoin rifampin toxoids vaccines warfarin What if I miss a dose? If you miss a dose, take it as soon as you can. If it is almost time for your next dose, talk to your doctor or health home care physical therapist. You may need to miss a dose or take an extra dose. Do not take double or extra doses without advice. Where should I keep my medicine? Keep out of the reach of children. Store at room temperature between 15 and 30 degrees C (59 and 86 degrees F). Protect from light. Keep container tightly closed. Throw away any unused medicine after the expiration date. What should I tell my health care provider before I take this medicine? They need to know if you have any of these conditions: [place]'s syndrome diabetes glaucoma heart disease high blood pressure infection (especially a virus infection such as chickenpox, cold sores, or herpes) kidney disease liver disease mental illness myasthenia gravis osteoporosis seizures stomach or intestine problems thyroid disease an unusual or allergic reaction to lactose, prednisone, other medicines, foods, dyes, or preservatives or trying to get breast-feeding What should I watch for while using this medicine? Visit your doctor or health home care physical therapist for regular checks on your progress. If you are taking this medicine over a prolonged period, carry an identification card with your name and address, the type and dose of your medicine, and your doctor's name and address. This medicine may increase your risk of getting an infection. Tell your doctor or health home care physical therapist if you are around anyone with measles or chickenpox, or if you develop sores or blisters that do not heal properly. If you are going to have surgery, tell your doctor or health home care physical therapist that you have taken this medicine within the last twelve months. Ask your doctor or health home care physical therapist about your diet. You may need to lower the amount of salt you eat. This medicine may affect blood sugar levels. If you have diabetes, check with your doctor or health home care physical therapist before you change your diet or the dose of your diabetic medicine. Clindamycin Hydrochloride Oral capsule What is this medicine? CLINDAMYCIN (KLIN da MYE sin) is a lincosamide antibiotic. It is used to treat certain kinds of bacterial infections. It will not work for colds, flu, or other viral infections. How should I use this medicine? Take this medicine by mouth with a full glass of water. Follow the directions on the prescription label. You can take this medicine with food or on an empty stomach. If the medicine upsets your stomach, take it with food. Take your medicine at regular intervals. Do not take your medicine more often than directed. Take all of your medicine as directed even if you think your are better. Do not skip doses or stop your medicine early. Talk to your convenience store clerk regarding the use of this medicine in children. Special care may be needed. What side effects may I notice from receiving this medicine? Side effects that you should report to your doctor or health home care physical therapist as soon as possible: allergic reactions like skin rash, itching or hives, swelling of the face, lips, or tongue dark urine pain on swallowing redness, blistering, peeling or loosening of the skin, including inside the mouth unusual bleeding or bruising unusually weak or tired yellowing of eyes or skin Side effects that usually do not require medical attention (report to your doctor or health home care physical therapist if they continue or are bothersome): diarrhea itching in the rectal or genital area joint pain nausea, vomiting stomach pain What may interact with this medicine? chloramphenicol erythromycin kaolin products What if I miss a dose? If you miss a dose, take it as soon as you can. If it is almost time for your next dose, take only that dose. Do not take double or extra doses. Where should I keep my medicine? Keep out of the reach of children. Store at room temperature between 20 and 25 degrees C (68 and 77 degrees F). Throw away any unused medicine after the expiration date. What should I tell my health care provider before I take this medicine? They need to know if you have any of these conditions: kidney disease liver disease stomach problems like colitis an unusual or allergic reaction to clindamycin, lincomycin, or other medicines, foods, dyes like tartrazine or preservatives or trying to get breast-feeding What should I watch for while using this medicine? Tell your doctor or healthcare professional if your symptoms do not start to get better or if they get worse. Do not treat diarrhea with over the counter products. Contact your doctor if you have diarrhea that lasts more than 2 days or if it is severe and watery. Ranitidine Hydrochloride Oral tablet What is this medicine? RANITIDINE (ra HARRIS sandoval) is a type of antihistamine that blocks the release of stomach acid. It is used to treat stomach or intestinal ulcers. It can relieve ulcer pain and discomfort, and the heartburn from acid reflux. How should I use this medicine? Take this medicine by mouth with a glass of water. Follow the directions on the prescription label. If you only take this medicine once a day, take it at bedtime. Take your medicine at regular intervals. Do not take your medicine more often than directed. Do not stop taking except on your doctor's advice. Talk to your convenience store clerk regarding the use of this medicine in children. Special care may be needed. What side effects may I notice from receiving this medicine? Side effects that you should report to your doctor or health home care physical therapist as soon as possible: agitation, nervousness, depression, hallucinations allergic reactions like skin rash, itching or hives, swelling of the face, lips, or tongue breast enlargement in both males and females breathing problems redness, blistering, peeling or loosening of the skin, including inside the mouth unusual bleeding or bruising unusually weak or tired vomiting yellowing of the skin or eyes Side effects that usually do not require medical attention (report to your doctor or health home care physical therapist if they continue or are bothersome): constipation or diarrhea dizziness headache nausea What may interact with this medicine? atazanavir delavirdine gefitinib glipizide ketoconazole midazolam procainamide propantheline triazolam warfarin What if I miss a dose? If you miss a dose, take it as soon as you can. If it is almost time for your next dose, take only that dose. Do not take double or extra doses. Where should I keep my medicine? Keep out of the reach of children. Store at room temperature between 15 and 30 degrees C (59 and 86 degrees F). Protect from light and moisture. Keep container tightly closed. Throw away any unused medicine after the expiration date. What should I tell my health care provider before I take this medicine? They need to know if you have any of these conditions: kidney disease liver disease porphyria an unusual or allergic reaction to ranitidine, other medicines, foods, dyes, or preservatives or trying to get breast-feeding What should I watch for while using this medicine? Tell your doctor or health home care physical therapist if your condition does not start to get better or gets worse. You may need to take this medicine for several days as prescribed before your symptoms get better. Finish the full course of tablets prescribed, even if you feel better. Do not smoke cigarettes or drink alcohol. These increase irritation in your stomach and can lengthen the time it will take for ulcers to heal. Cigarettes and alcohol can also make acid reflux or heartburn worse. If you get black, tarry stools or vomit up what looks like coffee grounds, call your doctor or health home care physical therapist at once. You may have a bleeding ulcer. Acetaminophen Oral tablet What is this medicine? ACETAMINOPHEN (a set a MIHIR rudolph fen) is a pain reliever. It is used to treat mild pain and fever. How should I use this medicine? Take this medicine by mouth with a glass of water. Follow the directions on the package or prescription label. Take your medicine at regular intervals. Do not take your medicine more often than directed. Talk to your convenience store clerk regarding the use of this medicine in children. While this drug may be prescribed for children as young as 6 years of age for selected conditions, precautions do apply. What side effects may I notice from receiving this medicine? Side effects that you should report to your doctor or health home care physical therapist as soon as possible: allergic reactions like skin rash, itching or hives, swelling of the face, lips, or tongue breathing problems fever or sore throat redness, blistering, peeling or loosening of the skin, including inside the mouth trouble passing urine or change in the amount of urine unusual bleeding or bruising unusually weak or tired yellowing of the eyes or skin Side effects that usually do not require medical attention (report to your doctor or health home care physical therapist if they continue or are bothersome): headache nausea, stomach upset What may interact with this medicine? alcohol imatinib isoniazid other medicines with acetaminophen What if I miss a dose? If you miss a dose, take it as soon as you can. If it is almost time for your next dose, take only that dose. Do not take double or extra doses. Where should I keep my medicine? Keep out of reach of children. Store at room temperature between 20 and 25 degrees C (68 and 77 degrees F). Protect from moisture and heat. Throw away any unused medicine after the expiration date. What should I tell my health care provider before I take this medicine? They need to know if you have any of these conditions: if you frequently drink alcohol containing drinks liver disease an unusual or allergic reaction to acetaminophen, other medicines, foods, dyes or preservatives or trying to get breast-feeding What should I watch for while using this medicine? Tell your doctor or health home care physical therapist if the pain lasts more than 10 days (5 days for children), if it gets worse, or if there is a new or different kind of pain. Also, check with your doctor if a fever lasts for more than 3 days. Do not take other medicines that contain acetaminophen with this medicine. Always read labels carefully. If you have questions, ask your doctor or pharmacist. If you take too much acetaminophen get medical help right away. Too much acetaminophen can be very dangerous and cause liver damage. Even if you do not have symptoms, it is important to get help right away. Diphenhydramine Tannate Chewable tablet What is this medicine? DIPHENHYDRAMINE (dye karen mcdonough) is an antihistamine. It is used to treat the symptoms of an allergic reaction. How should I use this medicine? Take this medicine by mouth. Chew it completely before swallowing. Follow the directions on the prescription label. Take your doses at regular intervals. Do not take your medicine more often than directed. Talk to your convenience store clerk regarding the use of this medicine in children. While this drug may be prescribed for children as young as 6 years old for selected conditions, precautions do apply. Patients over 65 years old may have a stronger reaction and need a smaller dose. What side effects may I notice from receiving this medicine? Side effects that you should report to your doctor or health home care physical therapist as soon as possible: allergic reactions like skin rash, itching or hives, swelling of the face, lips, or tongue changes in vision confused, agitated, nervous irregular or fast heartbeat tremor trouble passing urine unusual bleeding or bruising unusually weak or tired Side effects that usually do not require medical attention (report to your doctor or health home care physical therapist if they continue or are bothersome): constipation, diarrhea drowsy headache loss of appetite stomach upset, vomiting thick mucous What may interact with this medicine? Do not take this medicine with any of the following medications: MAOIs like Carbex, Eldepryl, Marplan, Nardil, and Parnate This medicine may also interact with the following medications: alcohol barbiturates, like phenobarbital medicines for bladder spasm like oxybutynin, tolterodine medicines for blood pressure medicines for depression, anxiety, or psychotic disturbances medicines for movement abnormalities or Parkinson's disease medicines for sleep other medicines for cold, cough or allergy some medicines for the stomach like chlordiazepoxide, dicyclomine What if I miss a dose? If you miss a dose, take it as soon as you can. If it is almost time for your next dose, take only that dose. Do not take double or extra doses. Where should I keep my medicine? Keep out of the reach of children. Store at room temperature between 15 and 30 degrees C (59 and 86 degrees F). Keep container closed tightly. Throw away any unused medicine after the expiration date. What should I tell my health care provider before I take this medicine? They need to know if you have any of these conditions: glaucoma high blood pressure heart disease liver disease lung or breathing disease, like asthma pain or difficulty passing urine phenylketonuria prostate trouble ulcers or other stomach problems an unusual or allergic reaction to diphenhydramine, sulfites, other medicines foods, dyes, or preservatives or trying to get breast-feeding What should I watch for while using this medicine? Visit your doctor or health home care physical therapist for regular check ups. Tell your doctor or healthcare professional if your symptoms do not start to get better or if they get worse. Your mouth may get dry. Chewing sugarless gum or sucking hard candy, and drinking plenty of water may help. Contact your doctor if the problem does not go away or is severe. This medicine may cause dry eyes and blurred vision. If you wear contact lenses you may feel some discomfort. Lubricating drops may help. See your eye doctor if the problem does not go away or is severe. You may get drowsy or dizzy. Do not drive, use machinery, or do anything that needs mental alertness until you know how this medicine affects you. Do not stand or sit up quickly, especially if you are an older patient. This reduces the risk of dizzy or fainting spells. Alcohol may interfere with the effect of this medicine. Avoid alcoholic drinks. You have been given the following additional information: Allergic Reaction, Drug Tooth Abscess Dental Pain Prednisone Oral tablet Clindamycin Hydrochloride Oral capsule Ranitidine Hydrochloride Oral tablet Acetaminophen Oral tablet Diphenhydramine Tannate Chewable tablet (Electronically signed by Leoncio Bazzi DO 12/07/2016 23:03)
--- NOTE | 2016-12-07 23:04 | ED MAR SUMMARY ---
..... Medication Administration Record [facility] [address] [place] [address] Patient: GODLY FORRESTER Visit ID: [id number] 51y, M Weight: 72.5 kg Height/Length: 66 in BMI: 25.8 ALLERGIES: Amoxicillin Given 11:12/07/2016 Armond Waldron R.N. Medication Administered: PREDNISONE [PO], Dose: 60 mg Tablets PO. Medication Ordered: Prednisone PO 60 mg (NOW). Given 11:12/07/2016 Armond Waldron R.N. Medication Administered: BENADRYL [PO] (DIPHENHYDRAMINE HCL), Dose: 50 mg Capsules PO. Medication Ordered: Benadryl PO 50 mg (NOW). Given 11:12/07/2016 Armond Waldron R.N. Medication Administered: FAMOTIDINE [PO], Dose: 40 mg Tablets PO. Medication Ordered: Famotidine PO 40 mg (NOW).
--- NOTE | 2016-12-07 23:04 | ED MAR SUMMARY ---
..... Medication Administration Record [facility] [address] [place] [address] Patient: GOLDY FORRESTER Visit ID: [id number] 51y, M Weight: 72.5 kg Height/Length: 66 in BMI: 25.8 ALLERGIES: Amoxicillin Given 11:12/07/2016 Armond Waldron R.N. Medication Administered: PREDNISONE [PO], Dose: 60 mg Tablets PO. Medication Ordered: Prednisone PO 60 mg (NOW). Given 11:12/07/2016 Armond Waldron R.N. Medication Administered: BENADRYL [PO] (DIPHENHYDRAMINE HCL), Dose: 50 mg Capsules PO. Medication Ordered: Benadryl PO 50 mg (NOW). Given 11:12/07/2016 Armond Waldron R.N. Medication Administered: FAMOTIDINE [PO], Dose: 40 mg Tablets PO. Medication Ordered: Famotidine PO 40 mg (NOW).
--- NOTE | 2016-12-07 23:04 | ED MED RECONCILIATION SUMMARY ---
Patient: GOLDY FORRESTER Medication Reconciliation Report [facility] VisitID: [id number] [address] [place] [address] 51y, M Registration Date/Time: 12/07/2016 Weight: 72.5 kg Height/Length: 66 in. BMI: 25.8 ALLERGIES: Amoxicillin The patient's Home Medications are listed below: CONTINUE TAKING THE FOLLOWING MEDICATIONS: MetFORMIN HCl Oral The source(s) of the original Home Medication information: patient The following Medications were given to the patient in the Emergency Department: Prednisone [PO] PO 60 mg, administered: 12/07/2016 11:01:00 AM Benadryl [PO] PO 50 mg, administered: 12/07/2016 11:01:00 AM Famotidine [PO] PO 40 mg, administered: 12/07/2016 11:01:00 AM The following Medications were prescribed to the patient: Acetaminophen (available over the counter): take according to label instructions. -- Leoncio Bazzi DO Hydrocodone/APAP 5mg/325mg: take 1 to 2 orally every 6 hours as needed for pain. Dispense fifteen (15). No refills. -- Leoncio Bazzi DO Benadryl (available over the counter): take 1-2 orally every 8 hours for 5 days, as needed for itching or allergies. Dispense thirty (30). No refill. Substitution is permissible. -- Leoncio Bazzi DO EpiPen: inject outside of thigh for allergic reaction. Dispense one (1) unit. No refills. Substitution is permissible. -- Leoncio Bazzi DO Prednisone 20 mg: take 3 orally every day for 4 days. Dispense sufficient quantity. No refills. -- Leoncio Bazzi DO Clindamycin 300 mg: take 1 capsule orally every 6 hours for 7 days. No refills. -- Leoncio Bazzi DO Zantac 150 mg: take 1 orally every 12 hours for 5 days. Dispense fifteen (15). No refills. Substitution is permissible. -- Leoncio Bazzi DO
--- NOTE | 2016-12-07 23:04 | ED MED RECONCILIATION SUMMARY ---
Patient: GOLDY FORRESTER Medication Reconciliation Report [facility] VisitID: [id number] [address] [place] [address] 51y, M Registration Date/Time: 12/07/2016 Weight: 72.5 kg Height/Length: 66 in. BMI: 25.8 ALLERGIES: Amoxicillin The patient's Home Medications are listed below: CONTINUE TAKING THE FOLLOWING MEDICATIONS: MetFORMIN HCl Oral The source(s) of the original Home Medication information: patient The following Medications were given to the patient in the Emergency Department: Prednisone [PO] PO 60 mg, administered: 12/07/2016 11:01:00 AM Benadryl [PO] PO 50 mg, administered: 12/07/2016 11:01:00 AM Famotidine [PO] PO 40 mg, administered: 12/07/2016 11:01:00 AM The following Medications were prescribed to the patient: Acetaminophen (available over the counter): take according to label instructions. -- Leoncio Bazzi DO Hydrocodone/APAP 5mg/325mg: take 1 to 2 orally every 6 hours as needed for pain. Dispense fifteen (15). No refills. -- Leoncio Bazzi DO Benadryl (available over the counter): take 1-2 orally every 8 hours for 5 days, as needed for itching or allergies. Dispense thirty (30). No refill. Substitution is permissible. -- Leoncio Bazzi DO EpiPen: inject outside of thigh for allergic reaction. Dispense one (1) unit. No refills. Substitution is permissible. -- Leoncio Bazzi DO Prednisone 20 mg: take 3 orally every day for 4 days. Dispense sufficient quantity. No refills. -- Leoncio Bazzi DO Clindamycin 300 mg: take 1 capsule orally every 6 hours for 7 days. No refills. -- Leoncio Bazzi DO Zantac 150 mg: take 1 orally every 12 hours for 5 days. Dispense fifteen (15). No refills. Substitution is permissible. -- Leoncio Bazzi DO
== END 2016-12-07 12:10 | disposition home or self-care (01) ==
LOC: ED SRH 10:28
DX: L50.0 Allergic urticaria (principal); T36.0X5A Adverse effect of penicillins, initial encounter; K04.7 Periapical abscess without sinus; K02.9 Dental caries, unspecified; E11.9 Type 2 diabetes mellitus without complications; Z88.0 Allergy status to penicillin; Z79.84 Long term (current) use of oral hypoglycemic drugs; Y92.9 Unspecified place or not applicable